=== PATIENT | female | born 1995 | race Hispanic/Latino ===

== ENCOUNTER 2022-09-17 09:53 | Day surgery (SDC) | payer OTHER ==
[2022-09-17] MEDS ORDERED: hydrALAZINE 20 MG/ML VIAL SLOW IVP PRN (11:43)
== END 2022-09-17 12:00 | disposition home or self-care (01) ==
LOC: CSHLD/OP 09:53
PROVIDERS: ATTEND Obstetrics & Gynecology
DX: O47.1 False labor at or after 37 completed weeks of gestation (principal); Z3A.38 38 weeks gestation of pregnancy; Z79.899 Other long term (current) drug therapy; Z90.49 Acquired absence of other specified parts of digestive tract

== ENCOUNTER 2022-09-24 10:10 | Inpatient (IN) | payer OTHER ==
[2022-09-24 10:41] VITALS: BMI 29.7
[2022-09-24] MEDS ORDERED: hydrALAZINE 20 MG/ML VIAL SLOW IVP PRN ×3 (13:07→22:41)
[2022-09-24] MEDS ORDERED: Ondansetron PF 4 MG/2 ML Vial IVP PRN ×3 (13:49→22:41)
[2022-09-24] MEDS ORDERED: Diphenoxylate HCl/Atropine Tablet PO PRN (13:49)
[2022-09-24] MEDS ORDERED: Butorphanol Tartrate 1 MG/ML VIAL SLOW IVP PRN (13:49)
[2022-09-24] MEDS ORDERED: Promethazine HCl 25 MG/ML VIAL IM PRN ×3 (13:49→22:41)
[2022-09-24] MEDS ORDERED: Lidocaine 1% (PF) 30 ML VIAL SC PRN (13:49)
[2022-09-24] MEDS ORDERED: Misoprostol 200 MCG TAB PR PRN (13:49)
[2022-09-24] MEDS ORDERED: Methylergonovine 0.2 MG/ML VIAL IM PRN ×2 (13:49→22:41)
[2022-09-24] MEDS ORDERED: Carboprost 250 MCG/ML AMP IM PRN (13:49)
[2022-09-24] MEDS ORDERED: Lactated Ringer's 1,000 ML IV SCH (14:00)
[2022-09-24] MEDS ORDERED: NS w/ Oxytocin 30 units 500 ML IV SCH ×3 (14:00→22:41)
[2022-09-24] MEDS ORDERED: NS w/ Oxytocin 30 units 500 ML ONE (14:15)
[2022-09-24] MEDS ORDERED: Fentanyl 2 mcg/Bup 0.1% Cadd 100 ML ONE (15:54)
[2022-09-24 16:57] LABS: Hemoglobin 11.5 g/dL (12.0-15.5); Mean Corpuscular Hemoglobin 27.3 pg (27.0-33.0); Mean Corpuscular Volume 82.7 fl (81.6-98.3); Mean Platelet Volume 10.7 fl (7.4-10.4); Platelet Count 244 10x3/uL (150-450); RBC Distribution Width 13.9 % (11.5-14.5); Red Blood Cell (RBC) Count 4.21 10x6/uL (3.90-5.03); White Blood Cell (WBC) Count 6.8 10x3/uL (3.5-10.5)
[2022-09-24 17:33] LABS: HBSAg Index 0.16 S/CO (0-0.99); Hep B Surf Ag Non-Reactive S/CO (NonReactive)
[2022-09-24 17:34] LABS: Syphilis Antibody Nonreactive (Nonreactive); Syphilis Antibody Index 0.02 S/CO (<1.00 Non-Reactive)
[2022-09-24] MEDS ORDERED: Bupivacaine 0.25% HCL 30 ML VIAL ONE (18:02)
[2022-09-24] MEDS ORDERED: Acetaminophen 325 MG TAB PO PRN (18:05)
[2022-09-24] MEDS ORDERED: ePHEDrine Sulfate 50 MG/10 ML VIAL SLOW IVP PRN (18:05)
[2022-09-24] MEDS ORDERED: diphenhydrAMINE 50 MG/ML VIAL IVP PRN (18:05)
[2022-09-24] MEDS ORDERED: Naloxone HCl 0.4 mg/ml Vial IVP PRN ×2 (18:05)
[2022-09-24] MEDS ORDERED: Moisturizing Cream (Eucerin) 113 GM JAR TOP PRN (18:05)
[2022-09-24] MEDS ORDERED: Communication Order-Pharmacy FS SCH (18:15)
[2022-09-24] MEDS ORDERED: Fentanyl 2 mcg/Bupivacaine 0.1% Cassette 100 ML EPIDURAL SCH (18:15)
[2022-09-24] MEDS ORDERED: Lactated Ringer's 500 ML IV PRN (18:37)
[2022-09-24 21:07] LABS: SARS-CoV-2 NAA Rapid Test Not Detected (NotDetected)
[2022-09-24] MEDS ORDERED: Boostrix 0.5 ML (Tdap) VIAL (>/=7 yrs of age) IM ONE (22:41)
[2022-09-24] MEDS ORDERED: Benzocaine-Menthol 82.5 ML CAN TOP PRN (22:41)
[2022-09-24] MEDS ORDERED: Preparation H Ointment 28 GM TUBE PR PRN (22:41)
[2022-09-24] MEDS ORDERED: Milk Of Magnesia 30 ML UDCUP PO PRN (22:41)
[2022-09-24] MEDS ORDERED: Measles/Mumps/Rubella 10 MCG/0.5 ML VIAL SC ONE (22:41)
[2022-09-24] MEDS ORDERED: diphenhydrAMINE 25 MG CAP PO PRN (22:41)
[2022-09-24] MEDS ORDERED: Zolpidem Tartrate 5 MG TAB PO PRN (22:41)
[2022-09-24] MEDS ORDERED: Lanolin Ointment 7 GM TUBE TOP PRN (22:41)
[2022-09-24] MEDS ORDERED: HYDROcodone/Acetaminophen 5/325 mg Tablet PO PRN (22:41)
[2022-09-24] MEDS ORDERED: Misoprostol 200 MCG TAB VAG PRN (22:41)
[2022-09-24] MEDS ORDERED: Varicella virus, LIVE 0.5 ML VIAL SC ONE (22:41)
[2022-09-24] MEDS ORDERED: Bisacodyl 10 MG SUPP PR PRN (22:41)
[2022-09-24] MEDS ORDERED: Ibuprofen 800 MG TAB PO SCH (22:45)
[2022-09-24] MEDS ORDERED: Docusate 100 MG CAP PO SCH (22:45)
[2022-09-25 03:15] LABS: Bilirubin Neg (Negative); Blood, Urine Negative (Negative); Clarity Cloudy (Clear); Glucose, Urine (Dipstick) Normal (Negative); Ketone, Urine Negative (Negative); Leukocyte Negative (Negative); Nitrite Negative (Negative); Protein, Urine (Dipstick) Negative (Neg-Trace); Specific Gravity, Urine 1.015 (1.005-1.030); Urobilinogen Normal mg/dL (Less than 2)
[2022-09-25 03:28] LABS: Bacteria/HPF Rare-Few HPF (None Seen); RBC/HPF 0-3 HPF (0-3); Renal Epithelial 0-3 HPF (None Seen); Squamous Epithelial 0-3 HPF (0-3); WBC/HPF 0-3 HPF (0-3)
[2022-09-25 05:23] LABS: Hemoglobin 9.8 g/dL (12.0-15.5); Mean Corpuscular HGB CONC 32.7 g/dL (32.0-36.0); Mean Corpuscular Volume 82.6 fl (81.6-98.3); Mean Platelet Volume 10.6 fl (7.4-10.4); Platelet Count 184 10x3/uL (150-450); RBC Distribution Width 13.8 % (11.5-14.5); Red Blood Cell (RBC) Count 3.63 10x6/uL (3.90-5.03); White Blood Cell (WBC) Count 10.6 10x3/uL (3.5-10.5)
[2022-09-25] MEDS: Ibuprofen 800 MG TAB PO SCH ×3 (06:07→22:13)
[2022-09-25] MEDS: Ferrous Sulfate 325 MG TAB PO SCH ×2 (08:38→16:50)
[2022-09-25] MEDS: Docusate 100 MG CAP PO SCH ×2 (08:38→22:13)
[2022-09-26 01:16] VITALS: TEMP 97.9
[2022-09-26] MEDS: Ibuprofen 800 MG TAB PO SCH (05:42)
[2022-09-26] MEDS: Docusate 100 MG CAP PO SCH (07:52)
[2022-09-26] MEDS: Ferrous Sulfate 325 MG TAB PO SCH (07:53)
[2022-09-26 08:49] VITALS: BP 118/56
== END 2022-09-26 12:00 | disposition home or self-care (01) | DRG 807 ==
LOC: CSHLD/OP 10:10 → CSHLD 16:55 → CSHPP 23:10
PROVIDERS: ADMIT Obstetrics & Gynecology; ATTEND Obstetrics & Gynecology
PROC: 10E0XZZ Delivery of Products of Conception, External Approach (ICD-10-PCS; principal; 2022-09-24)
DX: O80 Encounter for full-term uncomplicated delivery (principal); Z37.0 Single live birth; Z3A.39 39 weeks gestation of pregnancy; Z20.822 Contact with and (suspected) exposure to COVID-19; Z90.49 Acquired absence of other specified parts of digestive tract
CPT/HCPCS: 51702; 81001; 85027; 86780; 86850; 86900; 86901; 87086; 87340; 99285; J2590; S0020; U0002